=== PATIENT | male | born 1970 | race Hispanic/Latino ===

== ENCOUNTER 2017-11-07 20:42 | Emergency (ER) | payer SELFPAY ==
[2017-11-07] MEDS ORDERED: Adacel (T-DAP) 0.5 ML VIAL ONE (22:00)
[2017-11-07] MEDS ORDERED: Lidocaine 1% (PF) 30 ML VIAL ONE (22:05)
[2017-11-07] MEDS ORDERED: Bacitracin Zinc 1 Packet ONE (22:42)
== END 2017-11-07 23:45 | disposition home or self-care (01) ==
LOC: ERS 20:42
DX: S61.012A Laceration without foreign body of left thumb without damage to nail, initial encounter (principal); W26.0XXA Contact with knife, initial encounter; Y92.69 Other specified industrial and construction area as the place of occurrence of the external cause
CPT/HCPCS: 12001; 90471; 90715; J2001